=== PATIENT | female | born 1995 | race Caucasian/White ===

== ENCOUNTER 2016-08-01 19:38 | Emergency (ER) | payer MEDICAID, OTHER ==
[~2016-08-01] VITALS: Ht 157.5 cm; Wt 59.4 kg
[~2016-08-01 19:38] MED LIST: ALBU.5I INH; ALBU6.7H INH; ALBU8I INH; FIORIC PO; PRED50 PO; VENTAER INH; ZITH250T PO
[2016-08-01 19:54] VITALS: BP 135/77; PULSE 90; RESP 16; TEMP 98.8; O2SAT 98
[2016-08-01] MEDS ORDERED: SODIUM CHLORIDE 0.9% FLUSH 5 ML FLUSH IVF PRN (22:15)
--- NOTE | 2016-08-01 22:18 | PD ---
HPI Chief Complaint: Abdominal Pain Time Seen by Provider: 22:00 Travel History International Travel<30 days: No Contact w/Intl Traveler<30days: No Traveled to known affect area: No History of Present Illness HPI 20yo F who is with LMP some time in May about 10 weeks presents to the ED with c/o lower abdominal pain for 1 day. Pain is around suprapubic region. Denies any fever, chest pain, sob, n/v, vaginal bleeding or discharge. Pt has not had an ultrasound for this yet. States she is sexually active with only one partner. Denies history of STI. PFSH Past Medical History ADHD: Yes Asthma: Yes Autoimmune Disease: No Cardiovascular Problems: No Cystic Fibrosis: No Diabetes: No Diminished Hearing: No Genitourinary: Yes (POLYCYSTIC KIDNEY DISEASE) Headaches: Yes Musculoskeletal: No Neurologic: No Psychiatric: No Respiratory: Yes (ASHTMA) Immunizations Current: Yes Migraines: Yes Sleep Apnea: No PNEUMOCCOCAL Vaccine (Year): 2 ?: : 0 Past Surgical History Oral Surgery: Yes (WISDOM TEETH) Tonsillectomy: Yes Other Surgery: Yes (WISDOM TEETH) Social History Alcohol Use: Yes (OCCASIONAL) Tobacco Use: Yes (1/2 PPD) Substance Use: No (PT DENIES) Allergies-Medications (Allergen,Severity, Reaction): Coded Allergies: Duck Feathers (Unverified Allergy, Severe, RASH, 08/01/16) Reported Meds & Prescriptions Reported Meds & Active Scripts Active No Active Prescriptions or Reported Medications Review of Systems Except as stated in HPI: all other systems reviewed are Neg Physical Exam Narrative GENERAL: 20yo F not in distress. SKIN: Warm and dry. HEAD: Atraumatic. Normocephalic. EYES: Pupils equal and round. No scleral icterus. No injection or drainage. ENT: No nasal bleeding or discharge. Mucous membranes pink and moist. NECK: Trachea midline. No JVD. CARDIOVASCULAR: Regular rate and rhythm. No murmur appreciated. RESPIRATORY: No accessory muscle use. Clear to auscultation. Breath sounds equal bilaterally. GASTROINTESTINAL: Abdomen soft, gravid abdomen. Nontender to palpation. No rebound tenderness or guarding. PELVIC: +Fishy smell. +yellowish mucous discharge. No CMT or adnexal tenderness bilaterally. MUSCULOSKELETAL: No obvious deformities. No clubbing. No cyanosis. No edema. NEUROLOGICAL: Awake and alert. No obvious cranial nerve deficits. Motor grossly within normal limits. Normal speech. PSYCHIATRIC: Appropriate mood and affect; insight and judgment normal. Data Data Last Documented VS Vital Signs Date Time Temp Pulse Resp B/P Pulse Ox O2 Delivery O2 Flow Rate FiO2 08/01/16 19:54 98.8 90 16 135/77 98 Orders Basic Metabolic Panel (Bmp) (08/01/16 22:12) Beta Hcg (Quant/Titer) (08/01/16 22:12) Complete Blood Count With Diff (08/01/16 22:12) Prothrombin Time / Inr (Pt) (08/01/16 22:12) Act Partial Throm Time (Ptt) (08/01/16 22:12) Urinalysis - C+S If Indicated (08/01/16 22:12) Sodium Chloride 0.9% Flush (Ns Flush) (08/01/16 22:15) Type And Screen (08/01/16 22:12) Gc And Chlamydia Pcr (08/01/16 22:27) Wet Prep Profile (08/01/16 22:27) Ed Poc Ultrasound (08/01/16 ) Urine Culture (08/01/16 22:30) Labs Laboratory Tests Test 08/01/16 22:30 White Blood Count 11.2 TH/MM3 Red Blood Count 4.06 MIL/MM3 Hemoglobin 13.0 GM/DL Hematocrit 38.0 % Mean Corpuscular Volume 93.6 FL Mean Corpuscular Hemoglobin 32.1 PG Mean Corpuscular Hemoglobin 34.3 % Concent Red Cell Distribution Width 11.5 % Platelet Count 194 TH/MM3 Mean Platelet Volume 9.0 FL Neutrophils (%) (Auto) 62.2 % Lymphocytes (%) (Auto) 30.1 % Monocytes (%) (Auto) 5.1 % Eosinophils (%) (Auto) 2.0 % Basophils (%) (Auto) 0.6 % Neutrophils # (Auto) 6.9 TH/MM3 Lymphocytes # (Auto) 3.4 TH/MM3 Monocytes # (Auto) 0.6 TH/MM3 Eosinophils # (Auto) 0.2 TH/MM3 Basophils # (Auto) 0.1 TH/MM3 CBC Comment DIFF FINAL Differential Comment Prothrombin Time 10.6 SEC Prothromb Time International 1.0 RATIO Ratio Activated Partial 25.7 SEC Thromboplast Time Urine Collection Type VOIDED Urine Color YELLOW Urine Turbidity HAZY Urine pH 6.5 Urine Specific [place] 1.008 Urine Protein NEG mg/dL Urine Glucose (UA) NEG mg/dL Urine Ketones NEG mg/dL Urine Occult Blood TRACE Urine Nitrite NEG Urine Bilirubin NEG Urine Leukocyte Esterase MOD Urine RBC 0-3 /hpf Urine WBC 3-5 /hpf Urine Squamous Epithelial 0-5 /hpf Cells Urine Bacteria FEW /hpf Microscopic Urinalysis Comment CULTURE INDICATED Urine Collection Time 2220 Clue Cells (Wet Prep) PRESENT Vaginal Trichomonas (Wet Prep) NONE SEEN Vaginal Yeast (Wet Prep) NONE SEEN Sodium Level 140 MEQ/L Potassium Level 3.7 MEQ/L Chloride Level 106 MEQ/L Carbon Dioxide Level 27.4 MEQ/L Anion Gap 7 MEQ/L Blood Urea Nitrogen 8 MG/DL Creatinine 0.49 MG/DL Estimat Glomerular Filtration 158 ML/MIN Rate Random Glucose 88 MG/DL Calcium Level 8.7 MG/DL Human Chorionic Gonadotropin, [address] MIU/ML Quant MDM Medical Decision Making Medical Screen Exam Complete: Yes Emergency Medical Condition: Yes Interpretation(s) Laboratory Tests Test 08/01/16 22:30 White Blood Count 11.2 TH/MM3 (4.0-11.0) Red Blood Count 4.06 MIL/MM3 (4.00-5.30) Hemoglobin 13.0 GM/DL (11.6-15.3) Hematocrit 38.0 % (35.0-46.0) Mean Corpuscular Volume 93.6 FL (80.0-100.0) Mean Corpuscular Hemoglobin 32.1 PG (27.0-34.0) Mean Corpuscular Hemoglobin 34.3 % Concent (32.0-36.0) Red Cell Distribution Width 11.5 % (11.6-17.2) Platelet Count 194 TH/MM3 (150-450) Mean Platelet Volume 9.0 FL (7.0-11.0) Neutrophils (%) (Auto) 62.2 % (16.0-70.0) Lymphocytes (%) (Auto) 30.1 % (9.0-44.0) Monocytes (%) (Auto) 5.1 % (0.0-8.0) Eosinophils (%) (Auto) 2.0 % (0.0-4.0) Basophils (%) (Auto) 0.6 % (0.0-2.0) Neutrophils # (Auto) 6.9 TH/MM3 (1.8-7.7) Lymphocytes # (Auto) 3.4 TH/MM3 (1.0-4.8) Monocytes # (Auto) 0.6 TH/MM3 (0-0.9) Eosinophils # (Auto) 0.2 TH/MM3 (0-0.4) Basophils # (Auto) 0.1 TH/MM3 (0-0.2) CBC Comment DIFF FINAL Differential Comment Prothrombin Time 10.6 SEC (9.8-11.6) Prothromb Time International 1.0 RATIO Ratio Activated Partial 25.7 SEC Thromboplast Time (24.3-30.1) Urine Collection Type VOIDED Urine Color YELLOW (YELLW/STRAW) Urine Turbidity HAZY (CLEAR) Urine pH 6.5 (5.0-8.5) Urine Specific [place] 1.008 (1.002-1.035) Urine Protein NEG mg/dL (NEG-TRACE) Urine Glucose (UA) NEG mg/dL (NEG) Urine Ketones NEG mg/dL (NEG) Urine Occult Blood TRACE (NEG) Urine Nitrite NEG (NEG) Urine Bilirubin NEG (NEG) Urine Leukocyte Esterase MOD (NEG) Urine RBC 0-3 /hpf (0-3) Urine WBC 3-5 /hpf (0-5) Urine Squamous Epithelial 0-5 /hpf (0-5) Cells Urine Bacteria FEW /hpf (NONE) Microscopic Urinalysis Comment CULTURE INDICATED Urine Collection Time 2220 Clue Cells (Wet Prep) PRESENT (NONE) Vaginal Trichomonas (Wet Prep) NONE SEEN (NONE) Vaginal Yeast (Wet Prep) NONE SEEN (NONE) Sodium Level 140 MEQ/L (136-145) Potassium Level 3.7 MEQ/L (3.5-5.1) Chloride Level 106 MEQ/L (98-107) Carbon Dioxide Level 27.4 MEQ/L (21.0-32.0) Anion Gap 7 MEQ/L (5-15) Blood Urea Nitrogen 8 MG/DL (7-18) Creatinine 0.49 MG/DL (0.50-1.00) Estimat Glomerular Filtration 158 ML/MIN Rate (>89) Random Glucose 88 MG/DL (74-106) Calcium Level 8.7 MG/DL (8.5-10.1) Human Chorionic Gonadotropin, 180[address] MIU/ML Quant (0-5) Differential Diagnosis Bacterial vaginosis vs. UTI vs. gonorrhea/chlamydia vs. ectopic Narrative Course 20yo F who is around 10 or 11 weeks here with lower abdominal pain today. Abdominal exam is not remarkable with no tenderness on exam. Pelvic exam significant for yellowish discharge that is fishy smell. Impression is more bacterial vaginosis. No CMT or adnexal tenderness. Bedside US showed single IUP with FHR of 164bpm and + movement. Labs reviewed, mild leukocytosis at 11.2. bHCG 02848. Wet prep is positive for clue cells. Will give metronidazole for bacterial vaginosis. UA showed moderate leukocyte, likely from vaginal discharge but will still treat with macrobid given that pt is . Return precautions given. Procedures Procedure Narrative Emergency Department Pelvic ultrasound was performed with patient consent. The curvilinear probe was used in the transverse and sagittal views within the suprapubic region revealing single intrauterine . heart rate was 164bpm. Diagnosis Primary Impression: Bacterial vaginosis Patient Instructions: General Instructions Departure Forms: Tests/Procedures Additional Instructions: Please follow up with OBGYN in 3-7 days. Return to the ED if symptoms worsen. Med/Other Pt SpecificInfo: Prescription(s) given Scripts Acetaminophen 500 Mg [id number] Mg PO Q6H PRN (PAIN SCALE 1 TO 4) #20 TAB Ref 0 Prov:Janet Taylor DO 08/01/16 Nitrofurantoin Monohydrate Macrocrystals (Macrobid)100 Mg [id number] Mg PO BID 5 Days Ref 0 Prov:Janet Taylor DO 08/01/16 Metronidazole 500 Mg [id number] Mg PO BID 7 Days Ref 0 Prov:Janet Taylor DO 08/01/16 Janet Taylor DO Aug 01, 2016 22:18
[2016-08-01 22:50] LABS: AUTOMATED NEUTROPHIL # 6.9 TH/MM3 (1.8-7.7); BASOPHIL # 0.1 TH/MM3 (0-0.2); BASOPHIL % 0.6 % (0.0-2.0); EOSINOPHIL # 0.2 TH/MM3 (0-0.4); HEMO FLAGS DIFF FINAL; LYMPH % 30.1 % (9.0-44.0); LYMPHOCYTE # 3.4 TH/MM3 (1.0-4.8); MEAN CELL VOLUME 93.6 FL (80.0-100.0); MEAN CORPUSCULAR HEMOGLOBIN 32.1 PG (27.0-34.0); MEAN CORPUSCULAR HGB CONC 34.3 % (32.0-36.0); MONO % 5.1 % (0.0-8.0); NEUT % 62.2 % (16.0-70.0); PLATELET COUNT 194 TH/MM3 (150-450); RED BLOOD COUNT 4.06 MIL/MM3 (4.00-5.30); RED CELL DISTRIBUTION WIDTH 11.5 % (11.6-17.2); WHITE BLOOD COUNT 11.2 TH/MM3 (4.0-11.0)
[2016-08-01 22:59] LABS: BLOOD, URINE TRACE (NEG); GLUCOSE,URINE NEG (NEG); KETONE, URINE NEG (NEG); NITRITE,URINE NEG (NEG); PH, URINE 6.5 (5.0-8.5)
[2016-08-01 23:02] LABS: METHOD OF COLLECTION VOIDED; POTASSIUM 3.7 MEQ/L (3.5-5.1)
[2016-08-01 23:03] LABS: BACTERIA, URINE FEW /hpf; COMMENT (UR) CULTURE INDICATED; CULTURE IF INDICATED CULTURE INDICATED; RBC, URINE 0-3 /hpf (0-3); SQUAMOUS EPITHELIAL CELL URINE 0-5 /hpf (0-5); URINE COLOR YELLOW (YELLW/STRAW)
[2016-08-01 23:05] LABS: BICARBONATE 27.4 MEQ/L (21.0-32.0)
[2016-08-01 23:07] LABS: APTT (PATIENT) 25.7 SEC (24.3-30.1); PROTHROMBIN TIME - PATIENT 10.6 SEC (9.8-11.6)
[2016-08-01] MEDS ORDERED: MACR100C2 PO (23:33)
[2016-08-01] MEDS ORDERED: METR500T10 PO (23:33)
[2016-08-01] MEDS ORDERED: ACET500T3 PO (23:34)
[2016-08-01 23:35] VITALS: BP 126/64; PULSE 89; RESP 16; O2SAT 100
[2016-08-02 01:23] LABS: CHLAMYDIA PCR DETECTED (NOT DETECT); NEISSERIA PCR NOT DETECTED (NOT DETECT)
== END 2016-08-02 00:06 | disposition home or self-care (01) ==
LOC: PHED 19:38
DX: O23.91 Unspecified genitourinary tract infection in pregnancy, first trimester (principal); N76.0 Acute vaginitis; Z3A.10 10 weeks gestation of pregnancy
CPT/HCPCS: 80048; 81001; 84702; 85025; 85610; 85730; 86850; 86900; 86901; 87086; 87210; 87491; 87591; 99284

== ENCOUNTER 2016-08-04 12:55 | Emergency (ER) | payer MEDICAID ==
[~2016-08-04] VITALS: Ht 157.5 cm; Wt 58.9 kg
[~2016-08-04 12:55] MED LIST changes: +ACET500T3 PO; -ALBU.5I INH; -ALBU6.7H INH; -ALBU8I INH; -FIORIC PO; +MACR100C2 PO; +METR500T10 PO; -PRED50 PO; -VENTAER INH; -ZITH250T PO
[2016-08-04 13:02] VITALS: BP 128/80; PULSE 101; RESP 16; TEMP 98.5; O2SAT 100
[2016-08-04] MEDS ORDERED: SODIUM CHLOR 0.9% 1000 ML INJ 1,000 ML IV ONE ×2 (13:29→13:30)
[2016-08-04] MEDS ORDERED: cefTRIAXone INJ 1,000 MG in SODIUM CHLORIDE 0.9% INJ 100 ML IV ONE (13:30)
[2016-08-04] MEDS ORDERED: AZITHROMYCIN PWD FOR SUSP 1 GM PACKET PO ONE (13:30)
[2016-08-04] MEDS ORDERED: ONDANSETRON HCL 4 MG/2 ML VIAL IVP ONE (13:30)
[2016-08-04] MEDS ORDERED: SODIUM CHLORIDE 0.9% FLUSH 5 ML FLUSH IVF PRN (13:30)
--- NOTE | 2016-08-04 13:43 | PD ---
HPI Chief Complaint: Related Problem Time Seen by Provider: 13:17 Travel History International Travel<30 days: No Contact w/Intl Traveler<30days: No Traveled to known affect area: No History of Present Illness HPI Patient is a 20-year-old female who presents to emergency room for evaluation of lower abdominal cramping. Patient reports that she recently cannot that she was , reports that she thinks that she is about 12-13 weeks at this time. Patient reports that she began having lower abdominal cramping since July. Reports that she was seen in the ER at that time and was diagnosed with 1) bacterial vaginosis and was placed on Flagyl 2) chlamydia: Reports that someone called her the next day after her ER visit and told her that she had chlamydia and called in a prescription for her. Patient is unsure if she took this medication for treatment of chlamydia as "there were so many medications I was so confused." Patient did notify her sexual partner and reports that he will be treated tomorrow for chlamydia. 3) uti: Patient was discharged on Macrobid for UTI. Patient reports that she did take her first dose of Macrobid this morning. Patient reports that she continues to have intermittent lower abdominal cramping. Reports no vaginal bleeding. Reports scant vaginal discharge. Denies nausea or vomiting. Reports that she does have an appointment with a ob/ toll service observer on August 26, 2016 for her initial construction checker appointment. Patient denies fevers or chills. Patient denies chest pain or shortness of breath. Patient denies dysuria, urinary urgency or frequency. PFSH Past Medical History ADHD: Yes Asthma: Yes Autoimmune Disease: No Cardiovascular Problems: No Cystic Fibrosis: No Diabetes: No Diminished Hearing: No Gastrointestinal Disorders: Yes (ibs) Genitourinary: Yes (POLYCYSTIC KIDNEY DISEASE) Headaches: Yes Musculoskeletal: No Neurologic: No Psychiatric: No Respiratory: Yes (asthma) Immunizations Current: Yes Migraines: Yes Sleep Apnea: No Influenza Vaccination: No PNEUMOCCOCAL Vaccine (Year): 2 ?: LMP: approximately 12 weeks : 1 Para: 0 Past Surgical History Oral Surgery: Yes (WISDOM TEETH) Tonsillectomy: Yes Other Surgery: Yes (WISDOM TEETH) Family History Family History: Negative Social History Alcohol Use: No (DENIES) Tobacco Use: Yes (1/2 PPD, less now 1-2 cigs a day) Substance Use: No (PT DENIES) Allergies-Medications (Allergen,Severity, Reaction): Coded Allergies: Duck Feathers (Unverified Allergy, Severe, RASH, 08/04/16) Reported Meds & Prescriptions Reported Meds & Active Scripts Active Acetaminophen 500 Mg Tab 500 Mg PO Q6H PRN Macrobid (Nitrofurantoin Monoh/Nitrofur Macro) 100 Mg Cap 100 Mg PO BID 5 Days Metronidazole 500 Mg Tab 500 Mg PO BID 7 Days Review of Systems General / Constitutional: No: Fever Eyes: No: Visual changes HENT: No: Headaches Cardiovascular: No: Chest Pain or Discomfort Respiratory: No: Shortness of Breath Gastrointestinal: Positive: Nausea, Abdominal Pain, No: Vomiting, Diarrhea Genitourinary: Positive: Discharge, No: Urgency, Frequency, Dysuria, Vaginal Bleeding Musculoskeletal: No: Pain Skin: No Rash Neurologic: No: Weakness Psychiatric: No: Depression Endocrine: No: Polydipsia Hematologic/Lymphatic: No: Easy Bruising Physical Exam Narrative GENERAL: No acute distress, nontoxic SKIN: Warm and dry. HEAD: Atraumatic. Normocephalic. EYES: Pupils equal and round. No injection or drainage. ENT: No nasal bleeding or discharge. Mucous membranes pink and moist. NECK: Trachea midline. No JVD. CARDIOVASCULAR: Regular rate and rhythm. No murmur appreciated. RESPIRATORY: No accessory muscle use. Clear to auscultation. Breath sounds equal bilaterally. GASTROINTESTINAL: Abdomen soft, non-tender, nondistended. Hepatic and splenic margins not palpable. : Pt refuses pelvic exam at this time as she had one performed 2 days ago. MUSCULOSKELETAL: No obvious deformities. No clubbing. No cyanosis. No edema. NEUROLOGICAL: Awake and alert. Motor grossly within normal limits. Normal speech. PSYCHIATRIC: Appropriate mood and affect; insight and judgment normal. Data Data Last Documented VS Vital Signs Date Time Temp Pulse Resp B/P Pulse Ox O2 Delivery O2 Flow Rate FiO2 08/04/16 14:55 84 16 119/61 100 08/04/16 13:02 98.5 Orders Beta Hcg (Quant/Titer) (08/04/16 13:29) Complete Blood Count With Diff (08/04/16 13:29) Comprehensive Metabolic Panel (08/04/16 13:29) Us Pelvis (Ques Pr/Ect)W Trans (1/29/17 ) Urinalysis - C+S If Indicated (08/04/16 13:29) Iv Access Insert/Monitor (08/04/16 13:29) Azithromycin Powd Pack (Zithromax Powd P (08/04/16 13:30) Sodium Chloride 0.9% Flush (Ns Flush) (08/04/16 13:30) Sodium Chlor 0.9% 1000 Ml Inj (Ns 1000 M (08/04/16 13:29) Ondansetron Inj (Zofran Inj) (08/04/16 13:30) Ceftriaxone Inj (Rocephin Inj) (08/04/16 13:30) Sodium Chlor 0.9% 1000 Ml Inj (Ns 1000 M (08/04/16 13:30) Labs Laboratory Tests Test 08/04/16 08/04/16 13:35 13:40 Urine Collection Type CLEAN CATCH Urine Color YELLOW Urine Turbidity CLEAR Urine pH 6.5 Urine Specific [place] 1.008 Urine Protein NEG mg/dL Urine Glucose (UA) NEG mg/dL Urine Ketones NEG mg/dL Urine Occult Blood NEG Urine Nitrite NEG Urine Bilirubin NEG Urine Leukocyte Esterase SMALL Urine WBC 0-2 /hpf Urine Squamous Epithelial 0-5 /hpf Cells Microscopic Urinalysis Comment CULT NOT INDICATED White Blood Count 11.8 TH/MM3 Red Blood Count 4.31 MIL/MM3 Hemoglobin 13.8 GM/DL Hematocrit 40.0 % Mean Corpuscular Volume 92.7 FL Mean Corpuscular Hemoglobin 32.1 PG Mean Corpuscular Hemoglobin 34.6 % Concent Red Cell Distribution Width 11.4 % Platelet Count 185 TH/MM3 Mean Platelet Volume 8.9 FL Neutrophils (%) (Auto) 69.8 % Lymphocytes (%) (Auto) 20.9 % Monocytes (%) (Auto) 7.4 % Eosinophils (%) (Auto) 1.6 % Basophils (%) (Auto) 0.3 % Neutrophils # (Auto) 8.2 TH/MM3 Lymphocytes # (Auto) 2.5 TH/MM3 Monocytes # (Auto) 0.9 TH/MM3 Eosinophils # (Auto) 0.2 TH/MM3 Basophils # (Auto) 0.0 TH/MM3 CBC Comment DIFF FINAL Differential Comment Sodium Level 140 MEQ/L Potassium Level 3.9 MEQ/L Chloride Level 107 MEQ/L Carbon Dioxide Level 25.8 MEQ/L Anion Gap 7 MEQ/L Blood Urea Nitrogen 5 MG/DL Creatinine 0.46 MG/DL Estimat Glomerular Filtration 170 ML/MIN Rate Random Glucose 85 MG/DL Calcium Level 8.5 MG/DL Total Bilirubin 0.2 MG/DL Aspartate Amino Transf 14 U/L (AST/SGOT) Alanine Aminotransferase 16 U/L (ALT/SGPT) Alkaline Phosphatase 41 U/L Total Protein 7.2 GM/DL Albumin 3.5 GM/DL Human Chorionic Gonadotropin, 42642 MIU/ML Quant MDM Medical Decision Making Medical Screen Exam Complete: Yes Emergency Medical Condition: Yes Interpretation(s) Vital Signs Date Time Temp Pulse Resp B/P Pulse Ox O2 Delivery O2 Flow Rate FiO2 08/04/16 13:02 98.5 101 16 128/80 100 Differential Diagnosis Cervicitis, UTI, threatened , ectopic , appendicitis Narrative Course Patient is a 20-year-old female presents to emergency room with complaints of lower abdominal pain and cramping. Patient reports that she recently found out that she is with her first child, reports that for the past 3 days, she has had increased lower pelvic cramping. Patient reports she was diagnosed with bacterial vaginosis, chlamydia and a urinary tract infection. Patient reports that she started on her antibiotics today. Patient reports that pain is intermittent to her lower abdomen; patient was concerned for symptoms and came to the ER for reevaluation of symptoms. Patient currently well-appearing emergency room. Patient recently was diagnosed with chlamydia after having a pelvic exam on August 01, 2016. Patient was called in script for her for treatment for chlamydia, patient is unsure if she has taken her antibiotics. Will treat patient chlamydia. Patient currently refusing repeat pelvic exam as she has not been sexually active with her boyfriend since her previous ER visit. Patient also with UTI, will treat with Rocephin which will also treat for possible gonorrhea Plan to obtain HCC Quant, hCG Quant on 08/01/2016 was 22,343 Pelvic US ordered to evaluate for threatened AB vs ectopic CBC & BMP Diagram 08/04/16 13:40 Last Impressions Pelvis Ultrasound 08/04/16 0000 Signed Impressions: Service Date/Time: Thursday, August 04, 2016 15:52 - CONCLUSION: Viable intrauterine dated between 11-12 weeks. Possible subchorionic hemorrhage. Small amount of free fluid in the pelvis. Obed Quinteros MD Copy of US report given to pt. patient will follow up with construction checker and return to ER as needed. Discussed wit pt need for bedrest/pelvic rest. She will follow up with all cultures from today. Signs and symptoms of when to return to emergency room with patient Diagnosis Primary Impression: Threatened miscarriage in early Additional Impressions: Subchorionic bleed Qualified Code: O41.8X11 - Subchorionic bleed, first trimester, fetus 1 Chlamydia Bacterial vaginosis Patient Instructions: General Instructions Departure Forms: Tests/Procedures, Work Release Enter return to work date: Aug 05, 2016 Special Instructions: no heavy lifting while at work Additional Instructions: Please follow-up with her BRAIDER SETTER as soon as possible Please bring your discharge instructions as well as your US report to doctor's office Bed rest/pelvic rest Take Tylenol every 4-6 hours as needed for minor discomfort as well as pain or fever. Return to the emergency room immediately if you have return of symptoms or if you have any irregular vaginal bleeding Please make sure all sexual partners are treated for chlamydia, does not engage in sexual activity until all parties are evaluated and treated Disposition: 01 DISCHARGE HOME Condition: Jacey Iyer DO Aug 04, 2016 13:43
[2016-08-04 13:49] LABS: BLOOD, URINE NEG (NEG); GLUCOSE,URINE NEG (NEG); KETONE, URINE NEG (NEG); NITRITE,URINE NEG (NEG); PH, URINE 6.5 (5.0-8.5)
[2016-08-04 13:51] LABS: AUTOMATED NEUTROPHIL # 8.2 TH/MM3 (1.8-7.7); BASOPHIL % 0.3 % (0.0-2.0); EOSINOPHIL # 0.2 TH/MM3 (0-0.4); EOSINOPHIL % 1.6 % (0.0-4.0); HEMO FLAGS DIFF FINAL; LYMPH % 20.9 % (9.0-44.0); LYMPHOCYTE # 2.5 TH/MM3 (1.0-4.8); MEAN CELL VOLUME 92.7 FL (80.0-100.0); MEAN CORPUSCULAR HEMOGLOBIN 32.1 PG (27.0-34.0); MEAN CORPUSCULAR HGB CONC 34.6 % (32.0-36.0); MONO % 7.4 % (0.0-8.0); NEUT % 69.8 % (16.0-70.0); PLATELET COUNT 185 TH/MM3 (150-450); RED BLOOD COUNT 4.31 MIL/MM3 (4.00-5.30); RED CELL DISTRIBUTION WIDTH 11.4 % (11.6-17.2); WHITE BLOOD COUNT 11.8 TH/MM3 (4.0-11.0)
[2016-08-04 13:57] LABS: CHLORIDE 107 MEQ/L (98-107); POTASSIUM 3.9 MEQ/L (3.5-5.1); SODIUM (NA) 140 MEQ/L (136-145)
[2016-08-04 13:59] LABS: METHOD OF COLLECTION CLEAN CATCH; URINE COLOR YELLOW (YELLW/STRAW)
[2016-08-04 14:00] LABS: COMMENT (UR) CULT NOT INDICATED; CULTURE IF INDICATED CULT NOT INDICATED; SQUAMOUS EPITHELIAL CELL URINE 0-5 /hpf (0-5); WBC, URINE 0-2 /hpf (0-5)
[2016-08-04 14:00] LABS: ANION GAP 7 MEQ/L (5-15); BICARBONATE 25.8 MEQ/L (21.0-32.0)
[2016-08-04 14:01] LABS: BLOOD UREA NITROGEN 5 MG/DL (7-18)
[2016-08-04 14:03] LABS: ALT (GPT) 16 U/L (10-53); AST (GOT) 14 U/L (15-37)
[2016-08-04 14:04] LABS: GLOMERULAR FILTRATION RATE 170 ML/MIN (>89)
[2016-08-04 14:05] LABS: TOTAL BILIRUBIN ADULT 0.2 MG/DL (0.2-1.0)
[2016-08-04 14:06] LABS: ALKALINE PHOSPHATASE 41 U/L (45-117)
[2016-08-04 14:22] LABS: BETA HCG QUANT 22271 MIU/ML (0-5)
[2016-08-04 14:55] VITALS: BP 119/61; PULSE 84; RESP 16; O2SAT 100
--- NOTE | 2016-08-04 16:47 | RADHPO ---
EXAM DATE/TIME: 08/04/2016 15:52 [facility] COMPARISON: No previous studies available for comparison. INDICATIONS : Pelvic pain. LAB(S): Beta-hC,271 MEDICAL HISTORY : . Irritable bowel syndrome. Polycystic kidney disease. ADHD. Dyspnea. Migraines. Asthma. SURGICAL HISTORY : Tonsillectomy. ENCOUNTER: Initial ACUITY: 3 days PAIN SCORE: 7/10 LOCATION: Bilateral pelvis MEASUREMENTS: UTERUS: 12.7 x 7.8 x 7.4 cm ENDOMETRIAL STRIPE: >20 mm RIGHT OVARY: 4.2 x 2.8 x 1.6 cm LEFT OVARY: 2.9 x 2.9 x 2.0 cm FINDINGS: Intrauterine is identified with crown-rump length measuring 5.4 cm and gestational sac simone uring 7.0 x 4.4 x 5.0 cm; this is characteristic of between 11 and 12 week gestation. heart ra te of 159 beats per minute is documented by Doppler. There is an elongated hypoechoic rim about the placenta which measures up to 1.4 cm in thickness suggesting a possible subchorionic hemorrhage. Bot h ovaries have normal echotexture. There is a mild amount of free fluid in the pelvis. CONCLUSION: Viable intrauterine dated between 11-12 weeks. Possible subchorionic hemorrhage. Small am ount of free fluid in the pelvis. Obed Quinteros MD on August 04, 2016 at 16:43 Board Certified Radiologist. This report was verified electronically.
== END 2016-08-04 18:02 | disposition home or self-care (01) ==
LOC: PHED 12:55
DX: O20.0 Threatened abortion (principal); Z3A.12 12 weeks gestation of pregnancy
CPT/HCPCS: 76700; 76817; 80053; 81001; 84702; 85025; 96361; 96365; 96375; 99284; J0696; J2405; J7030

== ENCOUNTER → 2016-09-17 | Outpatient (CLI) | payer MEDICAID | LOC: HPND 09:34 | PROVIDERS: ATTEND Obstetrics & Gynecology | DX: O35.2XX0 Maternal care for (suspected) hereditary disease in fetus, not applicable or unspecified (principal) | CPT/HCPCS: 76811 ==

== ENCOUNTER → 2016-10-16 | Outpatient (CLI) | payer MEDICAID | LOC: HPND 10:24 | PROVIDERS: ATTEND Obstetrics & Gynecology | DX: O35.2XX0 Maternal care for (suspected) hereditary disease in fetus, not applicable or unspecified (principal); O99.332 Smoking (tobacco) complicating pregnancy, second trimester; Z3A.22 22 weeks gestation of pregnancy | CPT/HCPCS: 76816 ==